=== PATIENT | male | born 1990 | race Caucasian/White ===

== ENCOUNTER 2017-09-04 23:36 | Emergency (ER) | payer SELFPAY ==
[2017-09-04] MEDS ORDERED: TDAP ADULT 0.5 ML INJ (BOOSTRIX) IM ONE (23:44)
--- NOTE | 2017-09-04 23:44 | EDPHY ---
H & P Time Seen by Provider: 09/04/17 23:43 HPI/ROS: CHIEF COMPLAINT: Left middle digit laceration 2 weeks ago HISTORY OF PRESENT ILLNESS: 26-year-old male with out-of-date tetanus states that 2 weeks ago he sustained a laceration to the dorsum of his left middle digit proximal aspect. This will continued to bleed intermittently if he irritates the area. No erythema. No pain. No flexor extensor deficits. No paresthesia. PHYSICAL EXAM (Prior to examination, patient consented to physical exam, hands were washed and my usual and customary physical exam procedures followed) 1) GENERAL: Well-developed, well-nourished, alert and oriented. Appears to be in no acute distress. 2) HEAD: Normocephalic 3) HEENT: sclera anicteric 4) LUNGS: Breathing comfortably. 5) SKIN: On the dorsum of the patient's left middle digit proximal phalanx he has a 2 cm granulating laceration with no signs of infection. 6) MUSCULOSKELETAL: No extensor deficits noted. No flexor deficits noted. FDS FDP intact. Negative kanavel. No signs of deep space infection or cellulitis. 7) NEUROLOGIC: Full sensation two-point discrimination intact distally Smoking Status: Current every day smoker Constitutional: Initial Vital Signs Temperature (C) 36.6 C 09/04/17 23:38 Heart Rate 68 09/04/17 23:38 Respiratory Rate 16 09/04/17 23:38 Blood Pressure 130/74 H 09/04/17 23:38 O2 Sat (%) 95 09/04/17 23:38 O2 Delivery Mode Room Air Allergies/Adverse Reactions: No Known Allergies Allergy (Unverified 01/26/14 10:06) Home Medications: Medication Instructions Recorded NK [No Known Home Meds] 01/26/14 MDM/Departure - MDM ED Course/Re-evaluation: This laceration is 2-week-old and is already granulating. There is a small area on the wound that bled slightly after irrigation with an resulted in hemostasis. This has been cleaned, his tetanus has been updated. He has negative kanavel, no signs of infection. No gross flexor extensor deficits. This will be allowed to heal via secondary intention. Usual and customary wound precautions and instructions provided. I saw this patient independently based on established practice protocols. Care of patient under supervision of secondary supervising physician Dr Reeder . - Depart Disposition: Home, Routine, Self-Care Clinical Impression: Finger laceration Qualifiers: Encounter type: initial encounter Finger: middle finger Damage to nail status: without damage Foreign body presence: without foreign body Laterality: left Qualified Code(s): S61.213A - Laceration without foreign body of left middle finger without damage to nail, initial encounter Condition: Good Instructions: Laceration (ED) Additional Instructions: Return to the ER if you develop redness, swelling, discharge, warmth to the wound, red streaks going up your arm, or any other symptoms that concern you. Referrals: [facility],. [Clinic] - 2-3 days, call for appt.
[2017-09-05 00:28] VITALS: BP 126/70
== END 2017-09-05 00:36 | disposition home or self-care (01) ==
DX: S61.213A Laceration without foreign body of left middle finger without damage to nail, initial encounter (principal); F17.200 Nicotine dependence, unspecified, uncomplicated; Z23 Encounter for immunization; X58.XXXA Exposure to other specified factors, initial encounter